=== PATIENT | male | born 1960 | race Caucasian/White ===

== ENCOUNTER 2017-08-25 21:54 | Inpatient (IN) | payer BC, OTHER ==
[~2017-08-25] VITALS: Ht 188 cm; Wt 122.2 kg
[2017-08-25] MEDS ORDERED: SODIUM CHLORIDE 0.9% 1,000 ML IV ONE (22:49)
[2017-08-25] MEDS ORDERED: MORPHINE SULFATE 4 MG/ML CPJ (NOT FOR IM USE) IV STA (22:49)
[2017-08-25] MEDS ORDERED: ONDANSETRON HCL 4MG/2ML VIAL IV ONE (23:00)
[2017-08-25 23:40] LABS: BASOPHILS % 0.3 % (0.0-2.0); HEMATOCRIT. 43.4 % (42.0-52.0); HEMOGLOBIN. 15.4 g/dL (14.0-18.0); LYMPHOCYTES % 23.6 % (20.0-50.0); MEAN CORPUSCULAR HEMOGLOBIN 31.1 pg (28.0-32.0); MEAN CORPUSCULAR VOLUME 87.6 fL (80.0-94.0); MEAN PLATELET VOLUME 6.3 fl (7.4-10.4); MONOCYTES % 9.6 % (2.0-8.0); NEUTROPHILS % 66.5 % (40.0-76.0); PLATELET 276 x1000/uL (130-400); RED BLOOD CELL COUNT 4.95 mill/uL (4.7-6.1)
[2017-08-25 23:48] LABS: CHLORIDE 87 mEq/L (98-107)
[2017-08-25 23:58] LABS: ETHANOL BLOOD 255 mg/dL
[2017-08-26 00:05] LABS: INR 1.3; PROTHROMBIN TIME 13.6 sec (9.4-11.6)
[2017-08-26] MEDS ORDERED: POTASSIUM CHLORIDE 20MEQ TABLET SR PO ONE (00:15)
[2017-08-26] MEDS ORDERED: KCL 20MEQ/100ML PREMIX 100 ML IV ONE (00:15)
[2017-08-26 04:00] VITALS: BP 127/80
[2017-08-26 05:00] VITALS: BP 127/80
[2017-08-26] MEDS ORDERED: DIPHENHYDRAMINE 50MG/ML VIAL IV PRN (06:15)
[2017-08-26] MEDS ORDERED: IPRATROPIUM/ALBUTEROL 0.5-3(2.5)MG/3ML NEB INH PRN (06:15)
[2017-08-26] MEDS ORDERED: DOCUSATE SODIUM 100MG CAPSULE PO PRN (06:15)
[2017-08-26] MEDS ORDERED: MORPHINE SULFATE 4 MG/ML CPJ (NOT FOR IM USE) IV PRN (06:15)
[2017-08-26] MEDS ORDERED: ACETAMINOPHEN 325MG TABLET PO PRN (06:15)
[2017-08-26] MEDS ORDERED: GUAIFENESIN 200MG/10ML SUGAR FREE UDC PO PRN (06:15)
[2017-08-26] MEDS ORDERED: MAGNESIUM/ALUMINUM HYDROXIDE/SIMETHICONE 30ML UDC PO PRN (06:15)
[2017-08-26] MEDS ORDERED: HYDROCODONE/ACETAMINOPHEN 5/325MG TABLET PO PRN (06:15)
[2017-08-26] MEDS ORDERED: NA PHOS,M-B/NA PHOS,DI-BA ENEMA 118ML PR PRN (06:15)
[2017-08-26] MEDS ORDERED: CLONIDINE 0.1MG TABLET PO PRN (06:15)
[2017-08-26] MEDS: LORAZEPAM 2MG/ML CPJ IV PRN ×4 (06:29→20:19)
[2017-08-26 07:41] VITALS: BP_SYST 132; BP_SYST 135; BP_DIAS 82
[2017-08-26] MEDS: ENOXAPARIN 40MG/0.4ML SYR SUBCUT SCH (08:07)
[2017-08-26] MEDS: ONDANSETRON HCL 4MG/2ML VIAL IV PRN ×2 (08:07→20:30)
[2017-08-26] MEDS: CHLORDIAZEPOXIDE 25MG CAPSULE PO PRN ×2 (08:07→23:11)
[2017-08-26] MEDS: ASPIRIN 81MG EC TABLET PO SCH (08:07)
[2017-08-26] MEDS: DEXT 5%/0.45% NACL KCL 10MEQ/L 1,000 ML IV SCH ×2 (10:56→16:36)
[2017-08-26 11:40] VITALS: BP 128/88
[2017-08-26 15:19] VITALS: BP_SYST 112; BP_SYST 128; BP_DIAS 83; BP_DIAS 94
[2017-08-26 16:08] LABS: BASOPHILS % 0.1 % (0.0-2.0); EOSINOPHILS % 0.1 % (0.0-5.0); HEMATOCRIT. 42.7 % (42.0-52.0); HEMOGLOBIN. 15.1 g/dL (14.0-18.0); LYMPHOCYTES % 12.7 % (20.0-50.0); MEAN CORPUSCULAR HEMOGLOBIN 31.2 pg (28.0-32.0); MEAN CORPUSCULAR VOLUME 88.1 fL (80.0-94.0); MEAN PLATELET VOLUME 6.5 fl (7.4-10.4); NEUTROPHILS % 79.1 % (40.0-76.0); PLATELET 244 x1000/uL (130-400); RED BLOOD CELL COUNT 4.85 mill/uL (4.7-6.1); RED CELL DISTRIBUTION WIDTH 15.7 % (11.6-14.6)
[2017-08-26 16:10] LABS: CHLORIDE 95 mEq/L (98-107)
[2017-08-26 20:00] VITALS: BP 114/86
[2017-08-27] VITALS: BP 116/87
[2017-08-27] MEDS ORDERED: POTASSIUM CHLORIDE 20MEQ TABLET SR PO SCH (02:15)
[2017-08-27 04:00] VITALS: BP 141/95
[2017-08-27] MEDS ORDERED: DEXT 5%/0.45% NACL KCL 20MEQ/L 1,000 ML IV SCH (04:00)
[2017-08-27 06:18] LABS: BASOPHILS % 0.3 % (0.0-2.0); EOSINOPHILS % 0.8 % (0.0-5.0); HEMATOCRIT. 42.3 % (42.0-52.0); HEMOGLOBIN. 14.6 g/dL (14.0-18.0); LYMPHOCYTES % 27.5 % (20.0-50.0); MEAN CORPUSCULAR HEMOGLOBIN 30.9 pg (28.0-32.0); MEAN CORPUSCULAR VOLUME 89.5 fL (80.0-94.0); MEAN PLATELET VOLUME 6.6 fl (7.4-10.4); MONOCYTES % 9.6 % (2.0-8.0); NEUTROPHILS % 61.8 % (40.0-76.0); PLATELET 221 x1000/uL (130-400); RED BLOOD CELL COUNT 4.73 mill/uL (4.7-6.1); RED CELL DISTRIBUTION WIDTH 15.6 % (11.6-14.6)
[2017-08-27 06:44] LABS: CHLORIDE 100 mEq/L (98-107)
[2017-08-27 06:58] LABS: LDL CHOLESTEROL 54 mg/dL (5-100)
[2017-08-27 07:01] LABS: HDL CHOLESTEROL 60 mg/dL (40-59)
[2017-08-27 07:23] VITALS: BP 136/92
[2017-08-27] MEDS: ASPIRIN 81MG EC TABLET PO SCH (09:36)
[2017-08-27] MEDS: ENOXAPARIN 40MG/0.4ML SYR SUBCUT SCH (09:37)
[2017-08-27 11:19] VITALS: BP 136/92
[2017-08-27 11:20] VITALS: BP 142/98
== END 2017-08-27 12:04 | disposition home or self-care (01) | DRG 682 ==
LOC: ER 22:04 → 5WST 08-26 00:30 → EDBEDREQ 08-26 00:31 → EDBEDREQTM 08-26 00:31 → EDBEDREQDT 08-26 00:31 → EDBEDREQ 08-26 01:45 → CANRESERV 08-26 03:28 → ENRESERV 08-26 03:28
PROVIDERS: ADMIT Internal Medicine; ATTEND Internal Medicine
DX: N17.0 Acute kidney failure with tubular necrosis (principal); G93.41 Metabolic encephalopathy; E87.1 Hypo-osmolality and hyponatremia; W18.39XA Other fall on same level, initial encounter; E86.0 Dehydration; E87.6 Hypokalemia; I10 Essential (primary) hypertension; R00.0 Tachycardia, unspecified; N28.9 Disorder of kidney and ureter, unspecified; F10.229 Alcohol dependence with intoxication, unspecified; Z82.41 Family history of sudden cardiac death; Z86.718 Personal history of other venous thrombosis and embolism; Z79.899 Other long term (current) drug therapy; Y93.89 Activity, other specified; Y92.89 Other specified places as the place of occurrence of the external cause; Y99.8 Other external cause status
CPT/HCPCS: 36415; 70450; 71045; 80048; 80053; 80061; 83735; 83880; 84439; 84443; 84484; 85025; 85610; 93005; 96361; 96374; 96375; 99285; G0482; J1650; J2060; J2270; J2405; J3480; J7030

== ENCOUNTER 2018-07-08 09:02 | Inpatient (IN) | payer BC ==
[2018-07-08] VITALS (12 sets, daily range): BP systolic 80–146; BP diastolic 47–99
[~2018-07-08] VITALS: Ht 188 cm; Wt 113.9 kg
[2018-07-08] MEDS ORDERED: FOLIC ACID 1 MG, THIAMINE HCL 100 MG, MVI, ADULT NO.1 10 ML in DEXTROSE 5% WATER 1,000 ML IV ONE ×4 (09:30)
[2018-07-08] MEDS ORDERED: LORAZEPAM 2MG/ML CPJ IV ONE (09:30)
[2018-07-08] MEDS ORDERED: ONDANSETRON HCL 4MG/2ML INJ IV ONE (09:30)
[2018-07-08 09:59] LABS: BASOPHILS % 0.3 % (0.0-2.0); HEMATOCRIT. 43.1 % (42.0-52.0); HEMOGLOBIN. 15.1 g/dL (14.0-18.0); LYMPHOCYTES % 8.4 % (20.0-50.0); MEAN CORPUSCULAR HEMOGLOBIN 31.3 pg (28.0-32.0); MEAN CORPUSCULAR VOLUME 89.4 fL (80.0-94.0); MEAN PLATELET VOLUME 6.2 fl (7.4-10.4); MONOCYTES % 9.4 % (2.0-8.0); NEUTROPHILS % 81.9 % (40.0-76.0); PLATELET 113 x1000/uL (130-400); RED BLOOD CELL COUNT 4.82 mill/uL (4.7-6.1); RED CELL DISTRIBUTION WIDTH 16.3 % (11.6-14.6)
[2018-07-08 10:05] LABS: CHLORIDE 92 mEq/L (98-107)
[2018-07-08 10:09] LABS: ETHANOL BLOOD 118 mg/dL
[2018-07-08 10:12] LABS: INR 1.3; PROTHROMBIN TIME 12.7 sec (9.6-11.0)
[2018-07-08] MEDS ORDERED: POTASSIUM CHLORIDE 20MEQ TABLET SR PO ONE (10:15)
[2018-07-08] MEDS ORDERED: CHLORDIAZEPOXIDE 25MG CAPSULE PO ONE (10:45)
[2018-07-08] MEDS ORDERED: IPRATROPIUM/ALBUTEROL 0.5-3(2.5)MG/3ML NEB INH PRN (11:15)
[2018-07-08] MEDS ORDERED: DOCUSATE SODIUM 100MG CAPSULE PO PRN (11:15)
[2018-07-08] MEDS ORDERED: ONDANSETRON HCL 4MG/2ML INJ IV PRN (11:15)
[2018-07-08] MEDS ORDERED: MAGNESIUM/ALUMINUM HYDROXIDE/SIMETHICONE 30ML UDC PO PRN (11:15)
[2018-07-08] MEDS ORDERED: GUAIFENESIN 200MG/10ML SUGAR FREE UDC PO PRN (11:15)
[2018-07-08] MEDS ORDERED: NITROGLYCERIN 0.4MG TABLET SL SL PRN (11:15)
[2018-07-08] MEDS ORDERED: CLONIDINE 0.1MG TABLET PO PRN (11:15)
[2018-07-08] MEDS ORDERED: MAGNESIUM 2 G PREMIX 50 ML IV ONE (11:45)
[2018-07-08] MEDS ORDERED: ENOXAPARIN 30MG/0.3ML SYR SUBCUT SCH (12:30)
[2018-07-08] MEDS ORDERED: MVI, ADULT NO.1 10 ML, FOLIC ACID 1 MG, THIAMINE HCL 100 MG in SODIUM CHLORIDE 0.9% 1,0... IV NR ×4 (13:00)
[2018-07-08] MEDS: CHLORDIAZEPOXIDE 25MG CAPSULE PO SCH ×2 (13:15→21:37)
[2018-07-08] MEDS: LORAZEPAM 2MG/ML CPJ IV PRN ×2 (13:15→17:44)
[2018-07-08] MEDS ORDERED: LORAZEPAM 2MG/ML CPJ IV NR (14:00)
[2018-07-08] MEDS ORDERED: CHLORDIAZEPOXIDE 25MG CAPSULE PO SCH (14:00)
[2018-07-08] MEDS ORDERED: SODIUM CHLORIDE 0.9% 1,000 ML IV ONE (15:00)
[2018-07-08 15:21] LABS: BG BASE EXCESS -3.4 mmol/L (-2.0-2.0); BG CARBOXYHEMOGLOBIN 0.6 % (0.5-1.5); BG DEOXYHEMOGLOBIN 3.8 % (0.0-5.0); BG FRACTION INSPIRED OXYGEN 100; BG HCO3 ACT 18.4 mmol/L (22.0-26.0); BG METHEMOGLOBIN 0.1 % (0.0-1.5); BG OXYGEN SATURATION 96.2 % (92.0-98.5); BG OXYHEMOGLOBIN 95.5 % (94.0-97.0); BG PCO2 26.2 mmHg (35.0-45.0); BG PH 7.465 (7.350-7.450); BG PO2 82.5 mmHg (75.0-100.0); BG SAMPLE SITE RIGHT BRACHIAL; BG TOTAL HEMOGLOBIN 15.7 g/dL (12.0-18.0); BG VENT MODE MASK - NRB
[2018-07-08] MEDS ORDERED: IPRATROPIUM BROMIDE (0.02%) 0.5MG/2.5ML NEB HHN PRN (15:45)
[2018-07-08] MEDS ORDERED: LORAZEPAM 2MG/ML CPJ IV PRN (15:45)
[2018-07-08] MEDS ORDERED: MAGNESIUM 4 G PREMIX 100 ML IV NR (16:00)
[2018-07-08] MEDS: DEXT 5%/0.9% NACL 1,000 ML IV SCH (16:49)
[2018-07-08] MEDS: TRAMADOL 50MG TABLET PO PRN (18:28)
[2018-07-08] MEDS: FAMOTIDINE 20MG TABLET PO SCH (21:37)
[2018-07-08] MEDS: ZOLPIDEM TARTRATE 5MG TABLET PO PRN (21:37)
[2018-07-08] MEDS: METOPROLOL TARTRATE 25MG TABLET PO SCH (21:38)
[2018-07-08 22:21] LABS: BG BASE EXCESS 0.4 mmol/L (-2.0-2.0); BG BILEVEL POS AIRWAY PRESSURE 15/5; BG CARBOXYHEMOGLOBIN 0.7 % (0.5-1.5); BG FRACTION INSPIRED OXYGEN 80; BG HCO3 ACT 23.5 mmol/L (22.0-26.0); BG METHEMOGLOBIN 0.3 % (0.0-1.5); BG PCO2 33.9 mmHg (35.0-45.0); BG PH 7.459 (7.350-7.450); BG PO2 106.7 mmHg (75.0-100.0); BG SAMPLE SITE RIGHT RADIAL; BG TOTAL HEMOGLOBIN 15.8 g/dL (12.0-18.0); BG VENT MODE MASK - BIPAP; BG VENT RATE 16 set
[2018-07-08] MEDS: IPRATROPIUM BROMIDE (0.02%) 0.5MG/2.5ML NEB HHN SCH (22:28)
[2018-07-09] VITALS (11 sets, daily range): BP systolic 111–149; BP diastolic 41–94
[2018-07-09 00:46] LABS: *AMPHETAMINES SCREEN URINE NEGATIVE (NEGATIVE); CANNABINOID URINE SCREEN NEGATIVE (NEGATIVE)
[2018-07-09 00:47] LABS: *BARBITURATES SCREEN URINE NEGATIVE (NEGATIVE); *BENZODIAZEPINES SCREEN URINE NEGATIVE (NEGATIVE); *COCAINE SCREEN URINE NEGATIVE (NEGATIVE); METHADONE URINE SCREEN NEGATIVE (NEGATIVE); OPIATES URINE SCREEN NEGATIVE (NEGATIVE); PHENCYCLIDINE URINE SCREEN NEGATIVE (NEGATIVE)
[2018-07-09] MEDS: IPRATROPIUM BROMIDE (0.02%) 0.5MG/2.5ML NEB HHN SCH ×4 (01:21→20:36)
[2018-07-09] MEDS: DEXT 5%/0.9% NACL 1,000 ML IV SCH (02:58)
[2018-07-09] MEDS: CHLORDIAZEPOXIDE 25MG CAPSULE PO SCH ×3 (05:44→21:14)
[2018-07-09] MEDS: FAMOTIDINE 20MG TABLET PO SCH ×2 (09:25→20:43)
[2018-07-09] MEDS: METOPROLOL TARTRATE 25MG TABLET PO SCH ×2 (09:25→20:43)
[2018-07-09] MEDS: TRAMADOL 50MG TABLET PO PRN (11:51)
[2018-07-09 12:05] LABS: CHLORIDE 99 mEq/L (98-107)
[2018-07-09 12:06] LABS: HEMATOCRIT 42.2 % (42.0-52.0); HEMOGLOBIN 14.5 g/dL (14.0-18.0); MEAN CORPUSCULAR HEMOGLOBIN 30.9 pg (28.0-32.0); MEAN CORPUSCULAR VOLUME 89.7 fL (80.0-94.0); PLATELET 91 x1000/uL (130-400); RED BLOOD CELL COUNT 4.71 mill/uL (4.7-6.1); RED CELL DISTRIBUTION WIDTH 16.6 % (11.6-14.6)
[2018-07-09] MEDS: ENOXAPARIN 120MG/0.8ML SYR SUBCUT SCH (13:58)
[2018-07-09] MEDS: LORAZEPAM 2MG/ML CPJ IV PRN (20:44)
[2018-07-10] VITALS (9 sets, daily range): BP systolic 104–155; BP diastolic 42–106
[2018-07-10] MEDS: IPRATROPIUM BROMIDE (0.02%) 0.5MG/2.5ML NEB HHN SCH ×5 (00:33→21:11)
[2018-07-10] MEDS: ENOXAPARIN 120MG/0.8ML SYR SUBCUT SCH ×2 (00:52→12:16)
[2018-07-10] MEDS: CHLORDIAZEPOXIDE 25MG CAPSULE PO SCH ×3 (05:48→21:38)
[2018-07-10] MEDS: METOPROLOL TARTRATE 25MG TABLET PO SCH ×2 (08:19→21:00)
[2018-07-10] MEDS: FAMOTIDINE 20MG TABLET PO SCH ×2 (08:36→21:00)
[2018-07-10] MEDS: LORAZEPAM 2MG/ML CPJ IV PRN (14:53)
[2018-07-10] MEDS ORDERED: LORAZEPAM 2MG/ML CPJ IV PRN (15:45)
[2018-07-10] MEDS: LORAZEPAM 2MG/ML CPJ IM PRN ×2 (17:32→23:28)
[2018-07-11] VITALS (11 sets, daily range): BP systolic 102–161; BP diastolic 29–120
[2018-07-11] MEDS: LORAZEPAM 2MG/ML CPJ IM PRN ×3 (00:48→21:38)
[2018-07-11] MEDS: IPRATROPIUM BROMIDE (0.02%) 0.5MG/2.5ML NEB HHN SCH ×3 (02:07→14:51)
[2018-07-11] MEDS: CHLORDIAZEPOXIDE 25MG CAPSULE PO SCH ×3 (06:00→21:38)
[2018-07-11] MEDS: METOPROLOL TARTRATE 25MG TABLET PO SCH ×2 (10:38→21:00)
[2018-07-11] MEDS: FAMOTIDINE 20MG TABLET PO SCH ×2 (10:38→21:38)
[2018-07-11] MEDS: ENOXAPARIN 120MG/0.8ML SYR SUBCUT SCH ×2 (12:48)
[2018-07-11] MEDS: TRAMADOL 50MG TABLET PO PRN (21:49)
[2018-07-12] VITALS (13 sets, daily range): BP systolic 124–152; BP diastolic 67–107
[2018-07-12] MEDS: ENOXAPARIN 120MG/0.8ML SYR SUBCUT SCH ×3 (01:01→23:07)
[2018-07-12] MEDS: IPRATROPIUM BROMIDE (0.02%) 0.5MG/2.5ML NEB HHN SCH ×4 (02:00→21:10)
[2018-07-12] MEDS: CHLORDIAZEPOXIDE 25MG CAPSULE PO SCH ×3 (06:30→21:48)
[2018-07-12] MEDS: TRAMADOL 50MG TABLET PO PRN (06:44)
[2018-07-12] MEDS: METOPROLOL TARTRATE 25MG TABLET PO SCH ×2 (09:26→21:40)
[2018-07-12] MEDS: FAMOTIDINE 20MG TABLET PO SCH ×2 (09:26→21:40)
[2018-07-12] MEDS: KETOROLAC 15MG/ML VIAL IV PRN ×3 (09:27→21:39)
[2018-07-12] MEDS ORDERED: LORAZEPAM 2MG/ML CPJ IV PRN (11:45)
[2018-07-12] MEDS: ZOLPIDEM TARTRATE 5MG TABLET PO PRN (21:40)
[2018-07-12] MEDS: ACETAMINOPHEN 325MG TABLET PO PRN (23:16)
[2018-07-13] VITALS (12 sets, daily range): BP systolic 103–168; BP diastolic 37–99
[2018-07-13] MEDS: IPRATROPIUM BROMIDE (0.02%) 0.5MG/2.5ML NEB HHN SCH ×4 (02:44→22:09)
[2018-07-13] MEDS: CHLORDIAZEPOXIDE 25MG CAPSULE PO SCH ×3 (07:00→22:00)
[2018-07-13] MEDS: FAMOTIDINE 20MG TABLET PO SCH ×2 (09:02→22:01)
[2018-07-13] MEDS: METOPROLOL TARTRATE 25MG TABLET PO SCH ×2 (09:03→22:02)
[2018-07-13] MEDS: ENOXAPARIN 120MG/0.8ML SYR SUBCUT SCH (12:30)
[2018-07-13] MEDS: TRAMADOL 50MG TABLET PO PRN ×2 (12:38→22:17)
[2018-07-13] MEDS: ACETAMINOPHEN 325MG TABLET PO PRN (12:49)
[2018-07-13] MEDS ORDERED: CHLORDIAZEPOXIDE 25MG CAPSULE PO SCH (14:00)
[2018-07-13] MEDS: KETOROLAC 15MG/ML VIAL IV PRN (16:23)
[2018-07-13 19:59] LABS: CHLORIDE 99 mEq/L (98-107)
[2018-07-13 20:04] LABS: PHOSPHORUS 3.3 mg/dL (2.5-4.9)
[2018-07-13] MEDS ORDERED: MAGNESIUM 2 G PREMIX 50 ML IV NR (22:00)
[2018-07-14] VITALS (12 sets, daily range): BP systolic 116–150; BP diastolic 55–93
[2018-07-14] MEDS: ENOXAPARIN 120MG/0.8ML SYR SUBCUT SCH ×3 (01:28→23:04)
[2018-07-14] MEDS: IPRATROPIUM BROMIDE (0.02%) 0.5MG/2.5ML NEB HHN SCH ×4 (02:41→21:52)
[2018-07-14] MEDS: CHLORDIAZEPOXIDE 25MG CAPSULE PO SCH (05:58)
[2018-07-14] MEDS: METOPROLOL TARTRATE 25MG TABLET PO SCH ×2 (09:02→20:02)
[2018-07-14] MEDS: FAMOTIDINE 20MG TABLET PO SCH ×2 (09:02→20:02)
[2018-07-14] MEDS: KETOROLAC 15MG/ML VIAL IV PRN ×3 (10:53→22:56)
[2018-07-14] MEDS: CHLORDIAZEPOXIDE 5 MG CAPSULE PO SCH ×2 (13:51→22:56)
[2018-07-14] MEDS: TRAMADOL 50MG TABLET PO PRN (20:03)
[2018-07-15] VITALS (10 sets, daily range): BP systolic 93–150; BP diastolic 53–87
[2018-07-15] MEDS: IPRATROPIUM BROMIDE (0.02%) 0.5MG/2.5ML NEB HHN SCH ×4 (02:52→20:20)
[2018-07-15] MEDS: CHLORDIAZEPOXIDE 5 MG CAPSULE PO SCH ×3 (06:26→21:24)
[2018-07-15 06:51] LABS: HEMATOCRIT. 35.4 % (42.0-52.0); HEMOGLOBIN. 12.6 g/dL (14.0-18.0); MEAN CORPUSCULAR HEMOGLOBIN 32.6 pg (28.0-32.0); MEAN CORPUSCULAR VOLUME 91.4 fL (80.0-94.0); MEAN PLATELET VOLUME 7.4 fl (7.4-10.4); PLATELET 267 x1000/uL (130-400); RED BLOOD CELL COUNT 3.87 mill/uL (4.7-6.1); RED CELL DISTRIBUTION WIDTH 16.7 % (11.6-14.6)
[2018-07-15 07:04] LABS: CHLORIDE 97 mEq/L (98-107)
[2018-07-15] MEDS: METOPROLOL TARTRATE 25MG TABLET PO SCH ×2 (08:40→20:04)
[2018-07-15] MEDS: FAMOTIDINE 20MG TABLET PO SCH ×2 (08:40→20:04)
[2018-07-15 10:00] LABS: PLATELET ESTIMATE NORMAL
[2018-07-15] MEDS ORDERED: METHYLPREDNISOLONE SOD SUCC 125 MG/2 ML VIAL IV NR (10:15)
[2018-07-15] MEDS ORDERED: POTASSIUM CHLORIDE 20MEQ TABLET SR PO NR (10:30)
[2018-07-15] MEDS: COLCHICINE 0.6MG TABLET PO SCH ×11 (10:34→23:30)
[2018-07-15] MEDS: KETOROLAC 15MG/ML VIAL IV PRN (11:37)
[2018-07-15] MEDS: SODIUM CHLORIDE 0.9% 1,000 ML IV SCH (11:37)
[2018-07-15] MEDS: ENOXAPARIN 120MG/0.8ML SYR SUBCUT SCH ×2 (11:38→23:28)
[2018-07-15] MEDS ORDERED: MAGNESIUM 2 G PREMIX 50 ML IV SCH (12:00)
[2018-07-16] VITALS (11 sets, daily range): BP systolic 118–150; BP diastolic 52–96
[2018-07-16] MEDS: SODIUM CHLORIDE 0.9% 1,000 ML IV SCH (00:24)
[2018-07-16] MEDS: COLCHICINE 0.6MG TABLET PO SCH ×6 (00:30→17:50)
[2018-07-16] MEDS: IPRATROPIUM BROMIDE (0.02%) 0.5MG/2.5ML NEB HHN SCH ×4 (02:11→20:55)
[2018-07-16] MEDS: CHLORDIAZEPOXIDE 5 MG CAPSULE PO SCH (06:25)
[2018-07-16 07:19] LABS: CHLORIDE 105 mEq/L (98-107)
[2018-07-16] MEDS ORDERED: PREDNISONE 20MG TABLET PO NR (09:35)
[2018-07-16] MEDS: METOPROLOL TARTRATE 25MG TABLET PO SCH ×2 (09:40→20:46)
[2018-07-16] MEDS: FAMOTIDINE 20MG TABLET PO SCH ×2 (09:41→20:46)
[2018-07-16] MEDS: ENOXAPARIN 120MG/0.8ML SYR SUBCUT SCH ×2 (12:38→23:11)
[2018-07-17] VITALS (10 sets, daily range): BP systolic 112–145; BP diastolic 59–96
[2018-07-17] MEDS: IPRATROPIUM BROMIDE (0.02%) 0.5MG/2.5ML NEB HHN SCH ×2 (01:46→08:27)
[2018-07-17] MEDS: MULTIVITAMINS,THER W-MINERALS TABLET PO SCH (08:43)
[2018-07-17] MEDS: FAMOTIDINE 20MG TABLET PO SCH (08:43)
[2018-07-17] MEDS: THIAMINE HCL 100MG TABLET PO SCH (08:43)
[2018-07-17] MEDS: COLCHICINE 0.6MG TABLET PO SCH ×2 (08:43→16:58)
[2018-07-17] MEDS: METOPROLOL TARTRATE 25MG TABLET PO SCH (08:44)
[2018-07-17] MEDS: FOLIC ACID 1MG TABLET PO SCH (08:44)
[2018-07-17] MEDS: ENOXAPARIN 120MG/0.8ML SYR SUBCUT SCH (13:22)
[2018-07-17] MEDS: LIDOCAINE 5% PATCH TOP SCH (13:23)
[2018-07-17] MEDS: TRAMADOL 50MG TABLET PO PRN (20:25)
[2018-07-18] VITALS (12 sets, daily range): BP systolic 97–148; BP diastolic 62–92
[2018-07-18] MEDS: FAMOTIDINE 20MG TABLET PO SCH ×2 (00:14→09:48)
[2018-07-18] MEDS: ENOXAPARIN 120MG/0.8ML SYR SUBCUT SCH ×2 (00:15→12:40)
[2018-07-18] MEDS: METOPROLOL TARTRATE 25MG TABLET PO SCH ×2 (00:16→09:52)
[2018-07-18] MEDS: KETOROLAC 15MG/ML VIAL IV PRN ×2 (00:17→09:49)
[2018-07-18] MEDS: COLCHICINE 0.6MG TABLET PO SCH ×2 (09:00→17:00)
[2018-07-18] MEDS: THIAMINE HCL 100MG TABLET PO SCH (09:48)
[2018-07-18] MEDS: MULTIVITAMINS,THER W-MINERALS TABLET PO SCH (09:48)
[2018-07-18] MEDS: FOLIC ACID 1MG TABLET PO SCH (09:48)
[2018-07-18] MEDS: LIDOCAINE 5% PATCH TOP SCH (09:50)
[2018-07-18] MEDS ORDERED: KETOROLAC 15MG/ML VIAL IV PRN (15:45)
== END 2018-07-18 18:15 | DRG 896 ==
LOC: ER 09:02 → 5EST 10:08 → EDBEDREQ 10:21 → ENRESERV 10:57 → CANRESERV 10:57 → ENRESERV 11:00 → SUPCPDRO 11:07 → 5EST 22:14
PROVIDERS: ADMIT Internal Medicine; ATTEND Internal Medicine
PROC: 5A09357 Assistance with Respiratory Ventilation, Less than 24 Consecutive Hours, Continuous Positive Airway Pressure (ICD-10-PCS; 2018-07-08)
PROC: 5A09357 Assistance with Respiratory Ventilation, Less than 24 Consecutive Hours, Continuous Positive Airway Pressure (ICD-10-PCS; 2018-07-09)
PROC: 5A09357 Assistance with Respiratory Ventilation, Less than 24 Consecutive Hours, Continuous Positive Airway Pressure (ICD-10-PCS; principal; 2018-07-14)
DX: F10.239 Alcohol dependence with withdrawal, unspecified (principal); G92 Toxic encephalopathy; J96.00 Acute respiratory failure, unspecified whether with hypoxia or hypercapnia; E87.1 Hypo-osmolality and hyponatremia; E87.4 Mixed disorder of acid-base balance; I82.411 Acute embolism and thrombosis of right femoral vein; E44.1 Mild protein-calorie malnutrition; I82.431 Acute embolism and thrombosis of right popliteal vein; G40.89 Other seizures; F10.231 Alcohol dependence with withdrawal delirium; E87.6 Hypokalemia; E83.42 Hypomagnesemia; D64.9 Anemia, unspecified; D69.6 Thrombocytopenia, unspecified; E66.9 Obesity, unspecified; G62.9 Polyneuropathy, unspecified; I10 Essential (primary) hypertension; M10.9 Gout, unspecified; Z68.32 Body mass index [BMI] 32.0-32.9, adult
CPT/HCPCS: 36415; 36600; 71045; 80048; 80305; 80320; 82375; 82805; 83036; 83735; 83880; 84100; 84484; 85027; 93005; 93970; 94640; 94660; 96374; 97116; 97162; 97166; 97530; 99285; A6261; J1650; J1885; J2060; J2405; J2930; J3411; J3475; J3490; J7030; J7040; J7042; J7050; J7070; J7512; G0480

== ENCOUNTER 2018-07-18 18:53 | Inpatient (IN) | payer BC ==
[2018-07-17 20:30] VITALS: BP 97/75
[~2018-07-18] VITALS: Ht 188 cm; Wt 112.9 kg
[2018-07-18 20:00] VITALS: BP 97/75
[2018-07-18] MEDS ORDERED: GUAIFENESIN 200MG/10ML SUGAR FREE UDC PO PRN (20:15)
[2018-07-18] MEDS ORDERED: IPRATROPIUM BROMIDE (0.02%) 0.5MG/2.5ML NEB HHN PRN (20:15)
[2018-07-18] MEDS ORDERED: MAGNESIUM/ALUMINUM HYDROXIDE/SIMETHICONE 30ML UDC PO PRN (20:15)
[2018-07-18] MEDS ORDERED: NITROGLYCERIN 0.4MG TABLET SL SL PRN (20:15)
[2018-07-18] MEDS ORDERED: DOCUSATE SODIUM 100MG CAPSULE PO PRN (20:15)
[2018-07-18] MEDS ORDERED: ACETAMINOPHEN 325MG TABLET PO PRN (20:15)
[2018-07-18 20:30] VITALS: BP 97/75
[2018-07-18] MEDS: METOPROLOL TARTRATE 25MG TABLET PO SCH (21:00)
[2018-07-18] MEDS: FAMOTIDINE 20MG TABLET PO SCH (21:40)
[2018-07-18] MEDS: RIVAROXABAN 15 MG TABLET PO SCH (21:40)
[2018-07-18] MEDS: TRAMADOL 50MG TABLET PO PRN (22:25)
[2018-07-19 05:18] LABS: HEMATOCRIT. 38.5 % (42.0-52.0); HEMOGLOBIN. 13.4 g/dL (14.0-18.0); MEAN CORPUSCULAR VOLUME 91.9 fL (80.0-94.0); MEAN PLATELET VOLUME 6.5 fl (7.4-10.4); PLATELET 650 x1000/uL (130-400); RED BLOOD CELL COUNT 4.18 mill/uL (4.7-6.1)
[2018-07-19 08:00] VITALS: BP 149/98
[2018-07-19 08:01] LABS: CHLORIDE 106 mEq/L (98-107)
[2018-07-19] MEDS: COLCHICINE 0.6MG TABLET PO SCH ×2 (09:00→17:00)
[2018-07-19] MEDS: THIAMINE HCL 100MG TABLET PO SCH (09:00)
[2018-07-19] MEDS: MULTIVITAMINS,THER W-MINERALS TABLET PO SCH (09:00)
[2018-07-19] MEDS: FAMOTIDINE 20MG TABLET PO SCH ×2 (09:00→21:05)
[2018-07-19] MEDS: RIVAROXABAN 15 MG TABLET PO SCH ×2 (09:01→18:32)
[2018-07-19] MEDS: FOLIC ACID 1MG TABLET PO SCH (09:01)
[2018-07-19] MEDS: METOPROLOL TARTRATE 25MG TABLET PO SCH ×2 (09:01→21:05)
[2018-07-19] MEDS: LIDOCAINE 5% PATCH TOP SCH (09:02)
[2018-07-19 09:51] LABS: PLATELET ESTIMATE MARKEDLY INCREASED
[2018-07-19] MEDS: TRAMADOL 50MG TABLET PO PRN (10:52)
[2018-07-19] MEDS: LACTULOSE 20G/30ML UDC PO SCH ×2 (17:00→21:00)
[2018-07-19] MEDS: DOCUSATE SODIUM 100MG CAPSULE PO SCH (17:00)
[2018-07-19] MEDS: FERROUS SULFATE 300MG/5ML UDC PO SCH (18:32)
[2018-07-19 20:00] VITALS: BP 137/92
[2018-07-19] MEDS: POLYETHYLENE GLYCOL 3350 (17GM) 1 DOSE PACK PO SCH (21:00)
[2018-07-20 06:21] LABS: BASOPHILS % 0.6 % (0.0-2.0); EOSINOPHILS % 1.6 % (0.0-5.0); HEMATOCRIT. 39.1 % (42.0-52.0); HEMOGLOBIN. 13.6 g/dL (14.0-18.0); LYMPHOCYTES % 21.4 % (20.0-50.0); MEAN CORPUSCULAR HEMOGLOBIN 31.9 pg (28.0-32.0); MEAN CORPUSCULAR VOLUME 91.4 fL (80.0-94.0); MEAN PLATELET VOLUME 6.4 fl (7.4-10.4); MONOCYTES % 13.3 % (2.0-8.0); NEUTROPHILS % 63.1 % (40.0-76.0); PLATELET 698 x1000/uL (130-400); RED BLOOD CELL COUNT 4.28 mill/uL (4.7-6.1); RED CELL DISTRIBUTION WIDTH 17.2 % (11.6-14.6)
[2018-07-20 06:52] LABS: CHLORIDE 106 mEq/L (98-107)
[2018-07-20 07:00] LABS: FOLIC ACID (FOLATE) SERUM 14.8 ng/mL (>5.38)
[2018-07-20 07:01] LABS: PHOSPHORUS 4.2 mg/dL (2.5-4.9); TOTAL IRON BINDING CAPACITY 201 ug/dL (250-450)
[2018-07-20 07:04] LABS: PROSTRATE SPECIFIC AG TOTAL 1.35 ng/mL (0.0-4.0)
[2018-07-20 08:00] VITALS: BP 136/86
[2018-07-20] MEDS: COLCHICINE 0.6MG TABLET PO SCH ×2 (09:00→17:00)
[2018-07-20] MEDS: RIVAROXABAN 15 MG TABLET PO SCH ×2 (09:47→17:33)
[2018-07-20] MEDS: FOLIC ACID 1MG TABLET PO SCH (09:47)
[2018-07-20] MEDS: FAMOTIDINE 20MG TABLET PO SCH ×2 (09:48→21:11)
[2018-07-20] MEDS: MULTIVITAMINS,THER W-MINERALS TABLET PO SCH (09:48)
[2018-07-20] MEDS: DOCUSATE SODIUM 100MG CAPSULE PO SCH ×2 (09:48→17:00)
[2018-07-20] MEDS: METOPROLOL TARTRATE 25MG TABLET PO SCH ×2 (09:48→21:00)
[2018-07-20] MEDS: FERROUS SULFATE 300MG/5ML UDC PO SCH ×3 (09:49→17:33)
[2018-07-20] MEDS: LIDOCAINE 5% PATCH TOP SCH (09:50)
[2018-07-20] MEDS: MAGNESIUM OXIDE 400MG TABLET PO SCH (10:34)
[2018-07-20] MEDS: THIAMINE HCL 100MG TABLET PO SCH (10:34)
[2018-07-20] MEDS: LACTULOSE 20G/30ML UDC PO SCH (11:02)
[2018-07-20 11:54] LABS: T4 FREE 1.28 ng/dL (0.76-1.46)
[2018-07-20] MEDS ORDERED: LACTULOSE 20G/30ML UDC PO SCH (13:26)
[2018-07-20] MEDS: TRAMADOL 50MG TABLET PO PRN (17:33)
[2018-07-20 20:00] VITALS: BP 114/81
[2018-07-20] MEDS: POLYETHYLENE GLYCOL 3350 (17GM) 1 DOSE PACK PO SCH (21:00)
[2018-07-21] MEDS: TRAMADOL 50MG TABLET PO PRN ×4 (00:12→23:08)
[2018-07-21] MEDS: MULTIVITAMINS,THER W-MINERALS TABLET PO SCH (08:01)
[2018-07-21] MEDS: DOCUSATE SODIUM 100MG CAPSULE PO SCH ×3 (08:01→17:00)
[2018-07-21] MEDS: MAGNESIUM OXIDE 400MG TABLET PO SCH (08:01)
[2018-07-21] MEDS: FAMOTIDINE 20MG TABLET PO SCH ×2 (08:01→21:22)
[2018-07-21] MEDS: FOLIC ACID 1MG TABLET PO SCH (08:01)
[2018-07-21] MEDS: THIAMINE HCL 100MG TABLET PO SCH (08:01)
[2018-07-21] MEDS: COLCHICINE 0.6MG TABLET PO SCH ×2 (08:01→16:47)
[2018-07-21] MEDS: FERROUS SULFATE 300MG/5ML UDC PO SCH ×3 (08:02→16:47)
[2018-07-21] MEDS: METOPROLOL TARTRATE 25MG TABLET PO SCH ×2 (08:02→21:22)
[2018-07-21] MEDS: LIDOCAINE 5% PATCH TOP SCH (08:03)
[2018-07-21 08:04] VITALS: BP 116/73
[2018-07-21] MEDS: RIVAROXABAN 15 MG TABLET PO SCH ×2 (08:05→16:47)
[2018-07-21] MEDS: ALLOPURINOL 100 MG TABLET PO SCH (11:05)
[2018-07-21 16:30] VITALS: BP 104/64
[2018-07-21 20:00] VITALS: BP 118/77
[2018-07-21] MEDS: POLYETHYLENE GLYCOL 3350 (17GM) 1 DOSE PACK PO SCH (21:00)
[2018-07-22] MEDS: TRAMADOL 50MG TABLET PO PRN ×2 (06:28→15:41)
[2018-07-22 07:00] VITALS: BP 105/70
[2018-07-22] MEDS: COLCHICINE 0.6MG TABLET PO SCH ×2 (08:00→16:06)
[2018-07-22] MEDS: MAGNESIUM OXIDE 400MG TABLET PO SCH (08:00)
[2018-07-22] MEDS: FOLIC ACID 1MG TABLET PO SCH (08:00)
[2018-07-22] MEDS: FERROUS SULFATE 300MG/5ML UDC PO SCH ×3 (08:00→16:07)
[2018-07-22] MEDS: RIVAROXABAN 15 MG TABLET PO SCH ×2 (08:00→16:07)
[2018-07-22] MEDS: THIAMINE HCL 100MG TABLET PO SCH (08:00)
[2018-07-22] MEDS: FAMOTIDINE 20MG TABLET PO SCH ×2 (08:00→21:31)
[2018-07-22] MEDS: MULTIVITAMINS,THER W-MINERALS TABLET PO SCH (08:00)
[2018-07-22] MEDS: ALLOPURINOL 100 MG TABLET PO SCH (08:00)
[2018-07-22] MEDS: DOCUSATE SODIUM 100MG CAPSULE PO SCH ×2 (08:01→16:07)
[2018-07-22] MEDS: METOPROLOL TARTRATE 25MG TABLET PO SCH ×2 (08:01→21:31)
[2018-07-22] MEDS: LIDOCAINE 5% PATCH TOP SCH (08:02)
[2018-07-22 15:30] VITALS: BP 101/56
[2018-07-22] MEDS: CALCITONIN,SALMON, 3.7 ML NASAL SPRAY ONENSTRL SCH (15:41)
[2018-07-22] MEDS ORDERED: COLC0.6C3 MT (17:06)
[2018-07-22] MEDS ORDERED: AMLO1TAB12 MT (17:06)
[2018-07-22] MEDS ORDERED: ALLO100T MT (17:06)
[2018-07-22] MEDS ORDERED: COLC0.6C3 PO (17:07)
[2018-07-22 20:00] VITALS: BP 119/82
[2018-07-22] MEDS: POLYETHYLENE GLYCOL 3350 (17GM) 1 DOSE PACK PO SCH (21:00)
[2018-07-23] MEDS: TRAMADOL 50MG TABLET PO PRN ×3 (00:55→23:04)
[2018-07-23 08:49] VITALS: BP 106/72
[2018-07-23] MEDS: THIAMINE HCL 100MG TABLET PO SCH (09:29)
[2018-07-23] MEDS: DOCUSATE SODIUM 100MG CAPSULE PO SCH ×2 (09:29→17:00)
[2018-07-23] MEDS: FOLIC ACID 1MG TABLET PO SCH (09:29)
[2018-07-23] MEDS: FERROUS SULFATE 300MG/5ML UDC PO SCH ×3 (09:30→17:27)
[2018-07-23] MEDS: RIVAROXABAN 15 MG TABLET PO SCH ×2 (09:30→17:28)
[2018-07-23] MEDS: METOPROLOL TARTRATE 25MG TABLET PO SCH ×2 (09:30→21:18)
[2018-07-23] MEDS: COLCHICINE 0.6MG TABLET PO SCH ×2 (09:30→17:28)
[2018-07-23] MEDS: MULTIVITAMINS,THER W-MINERALS TABLET PO SCH (09:30)
[2018-07-23] MEDS: MAGNESIUM OXIDE 400MG TABLET PO SCH (09:30)
[2018-07-23] MEDS: ALLOPURINOL 100 MG TABLET PO SCH (09:30)
[2018-07-23] MEDS: FAMOTIDINE 20MG TABLET PO SCH ×2 (09:30→21:18)
[2018-07-23] MEDS: CALCITONIN,SALMON, 3.7 ML NASAL SPRAY ONENSTRL SCH (09:31)
[2018-07-23] MEDS: LIDOCAINE 5% PATCH TOP SCH (09:31)
[2018-07-23 17:06] LABS: 25-HYDROXY VITAMIN D3 24 ng/mL (.)
[2018-07-23 20:00] VITALS: BP 104/74
[2018-07-23] MEDS: POLYETHYLENE GLYCOL 3350 (17GM) 1 DOSE PACK PO SCH (21:00)
[2018-07-24 06:41] LABS: HEMATOCRIT. 40.7 % (42.0-52.0); MEAN CORPUSCULAR HEMOGLOBIN 31.7 pg (28.0-32.0); MEAN PLATELET VOLUME 6.5 fl (7.4-10.4); PLATELET 777 x1000/uL (130-400); RED BLOOD CELL COUNT 4.42 mill/uL (4.7-6.1); RED CELL DISTRIBUTION WIDTH 17.3 % (11.6-14.6)
[2018-07-24 07:08] LABS: CHLORIDE 103 mEq/L (98-107)
[2018-07-24 07:28] LABS: PHOSPHORUS 4.1 mg/dL (2.5-4.9)
[2018-07-24 08:00] VITALS: BP 125/74
[2018-07-24] MEDS: RIVAROXABAN 15 MG TABLET PO SCH ×2 (08:12→16:17)
[2018-07-24] MEDS: FAMOTIDINE 20MG TABLET PO SCH ×2 (08:12→20:59)
[2018-07-24] MEDS: FERROUS SULFATE 300MG/5ML UDC PO SCH ×3 (08:12→16:16)
[2018-07-24] MEDS: METOPROLOL TARTRATE 25MG TABLET PO SCH ×2 (08:12→20:59)
[2018-07-24] MEDS: CALCITONIN,SALMON, 3.7 ML NASAL SPRAY ONENSTRL SCH (08:12)
[2018-07-24] MEDS: MULTIVITAMINS,THER W-MINERALS TABLET PO SCH (08:12)
[2018-07-24] MEDS: ALLOPURINOL 100 MG TABLET PO SCH (08:12)
[2018-07-24] MEDS: COLCHICINE 0.6MG TABLET PO SCH ×2 (08:12→16:16)
[2018-07-24] MEDS: FOLIC ACID 1MG TABLET PO SCH (08:13)
[2018-07-24] MEDS: DOCUSATE SODIUM 100MG CAPSULE PO SCH ×2 (08:13→16:14)
[2018-07-24] MEDS: MAGNESIUM OXIDE 400MG TABLET PO SCH (08:13)
[2018-07-24] MEDS: THIAMINE HCL 100MG TABLET PO SCH (08:13)
[2018-07-24] MEDS: LIDOCAINE 5% PATCH TOP SCH ×2 (08:14→08:16)
[2018-07-24 09:45] LABS: PLATELET ESTIMATE INCREASED
[2018-07-24] MEDS: ERGOCALCIFEROL 50000UNITS CAPSULE PO SCH (12:45)
[2018-07-24] MEDS: TRAMADOL 50MG TABLET PO PRN ×2 (13:51→22:37)
[2018-07-24 20:00] VITALS: BP_SYST 117; BP_SYST 132; BP_DIAS 60; BP_DIAS 80
[2018-07-24] MEDS: POLYETHYLENE GLYCOL 3350 (17GM) 1 DOSE PACK PO SCH (20:59)
[2018-07-25] MEDS: TRAMADOL 50MG TABLET PO PRN ×2 (06:32→16:39)
[2018-07-25 08:00] VITALS: BP 136/90
[2018-07-25] MEDS: CALCITONIN,SALMON, 3.7 ML NASAL SPRAY ONENSTRL SCH (08:21)
[2018-07-25] MEDS: FERROUS SULFATE 300MG/5ML UDC PO SCH ×3 (08:21→16:05)
[2018-07-25] MEDS: FAMOTIDINE 20MG TABLET PO SCH ×2 (08:22→21:22)
[2018-07-25] MEDS: FOLIC ACID 1MG TABLET PO SCH (08:22)
[2018-07-25] MEDS: MAGNESIUM OXIDE 400MG TABLET PO SCH (08:22)
[2018-07-25] MEDS: ALLOPURINOL 100 MG TABLET PO SCH (08:22)
[2018-07-25] MEDS: METOPROLOL TARTRATE 25MG TABLET PO SCH ×2 (08:22→21:23)
[2018-07-25] MEDS: COLCHICINE 0.6MG TABLET PO SCH ×2 (08:22→16:05)
[2018-07-25] MEDS: MULTIVITAMINS,THER W-MINERALS TABLET PO SCH (08:22)
[2018-07-25] MEDS: THIAMINE HCL 100MG TABLET PO SCH (08:22)
[2018-07-25] MEDS: RIVAROXABAN 15 MG TABLET PO SCH ×2 (08:22→16:05)
[2018-07-25] MEDS: DOCUSATE SODIUM 100MG CAPSULE PO SCH ×2 (08:23→16:07)
[2018-07-25] MEDS: LIDOCAINE 5% PATCH TOP SCH (08:25)
[2018-07-25] MEDS ORDERED: LIDOCAINE HCL 1% 20ML VIAL (Pyxis) INJ INFIL NR (10:00)
[2018-07-25] MEDS ORDERED: TRIAMCINOLONE ACETONIDE 40MG/ML 1ML VIAL IM NR (10:00)
[2018-07-25] MEDS ORDERED: ETHYL CHLORIDE CAN TOP NR (10:00)
[2018-07-25] MEDS ORDERED: BUPIVACAINE HCL/PF 0.25% (2.5MG/ML) 10ML INFIL NR (10:00)
[2018-07-25] MEDS ORDERED: BISACODYL 5MG TABLET PO PRN ×2 (10:45→11:00)
[2018-07-25 20:00] VITALS: BP 128/82
[2018-07-25] MEDS: POLYETHYLENE GLYCOL 3350 (17GM) 1 DOSE PACK PO SCH (21:00)
[2018-07-26] MEDS: TRAMADOL 50MG TABLET PO PRN ×2 (00:59→22:27)
[2018-07-26 08:17] VITALS: BP 111/76
[2018-07-26] MEDS: FERROUS SULFATE 300MG/5ML UDC PO SCH ×3 (08:55→16:09)
[2018-07-26] MEDS: FOLIC ACID 1MG TABLET PO SCH (08:56)
[2018-07-26] MEDS: COLCHICINE 0.6MG TABLET PO SCH ×2 (08:56→16:10)
[2018-07-26] MEDS: METOPROLOL TARTRATE 25MG TABLET PO SCH ×2 (08:56→22:27)
[2018-07-26] MEDS: ALLOPURINOL 100 MG TABLET PO SCH (08:56)
[2018-07-26] MEDS: MULTIVITAMINS,THER W-MINERALS TABLET PO SCH (08:56)
[2018-07-26] MEDS: MAGNESIUM OXIDE 400MG TABLET PO SCH (08:56)
[2018-07-26] MEDS: FAMOTIDINE 20MG TABLET PO SCH ×2 (08:56→22:27)
[2018-07-26] MEDS: THIAMINE HCL 100MG TABLET PO SCH (08:56)
[2018-07-26] MEDS: RIVAROXABAN 15 MG TABLET PO SCH ×2 (08:57→16:09)
[2018-07-26] MEDS: CALCITONIN,SALMON, 3.7 ML NASAL SPRAY ONENSTRL SCH (09:00)
[2018-07-26] MEDS: LIDOCAINE 5% PATCH TOP SCH (09:00)
[2018-07-26] MEDS: DOCUSATE SODIUM 100MG CAPSULE PO SCH ×2 (09:00→16:10)
[2018-07-26 20:00] VITALS: BP 127/85
[2018-07-26] MEDS: POLYETHYLENE GLYCOL 3350 (17GM) 1 DOSE PACK PO SCH (22:27)
[2018-07-27] MEDS: TRAMADOL 50MG TABLET PO PRN ×2 (06:34→22:20)
[2018-07-27 06:47] LABS: BASOPHILS % 1.1 % (0.0-2.0); EOSINOPHILS % 1.7 % (0.0-5.0); HEMATOCRIT. 42.4 % (42.0-52.0); HEMOGLOBIN. 14.6 g/dL (14.0-18.0); LYMPHOCYTES % 27.7 % (20.0-50.0); MEAN CORPUSCULAR HEMOGLOBIN 31.4 pg (28.0-32.0); MEAN CORPUSCULAR VOLUME 91.2 fL (80.0-94.0); MEAN PLATELET VOLUME 6.5 fl (7.4-10.4); MONOCYTES % 14.8 % (2.0-8.0); NEUTROPHILS % 54.7 % (40.0-76.0); PLATELET 738 x1000/uL (130-400); RED BLOOD CELL COUNT 4.65 mill/uL (4.7-6.1); RED CELL DISTRIBUTION WIDTH 16.7 % (11.6-14.6)
[2018-07-27 06:59] LABS: CHLORIDE 104 mEq/L (98-107)
[2018-07-27 08:49] VITALS: BP 115/72
[2018-07-27] MEDS: COLCHICINE 0.6MG TABLET PO SCH ×2 (08:56→17:45)
[2018-07-27] MEDS: ALLOPURINOL 100 MG TABLET PO SCH (08:56)
[2018-07-27] MEDS: MAGNESIUM OXIDE 400MG TABLET PO SCH (08:56)
[2018-07-27] MEDS: MULTIVITAMINS,THER W-MINERALS TABLET PO SCH (08:56)
[2018-07-27] MEDS: FAMOTIDINE 20MG TABLET PO SCH ×2 (08:56→22:20)
[2018-07-27] MEDS: THIAMINE HCL 100MG TABLET PO SCH (08:56)
[2018-07-27] MEDS: METOPROLOL TARTRATE 25MG TABLET PO SCH ×2 (08:57→22:21)
[2018-07-27] MEDS: RIVAROXABAN 15 MG TABLET PO SCH ×2 (08:57→17:45)
[2018-07-27] MEDS: DOCUSATE SODIUM 100MG CAPSULE PO SCH ×2 (08:57→17:45)
[2018-07-27] MEDS: FERROUS SULFATE 300MG/5ML UDC PO SCH ×3 (08:57→17:45)
[2018-07-27] MEDS: FOLIC ACID 1MG TABLET PO SCH (08:57)
[2018-07-27] MEDS: CALCITONIN,SALMON, 3.7 ML NASAL SPRAY ONENSTRL SCH (08:57)
[2018-07-27] MEDS: LIDOCAINE 5% PATCH TOP SCH (08:59)
[2018-07-27 20:00] VITALS: BP 113/73
[2018-07-27] MEDS: POLYETHYLENE GLYCOL 3350 (17GM) 1 DOSE PACK PO SCH (22:21)
[2018-07-28] MEDS: TRAMADOL 50MG TABLET PO PRN ×2 (06:27→23:58)
[2018-07-28 08:00] VITALS: BP 119/70
[2018-07-28] MEDS: DOCUSATE SODIUM 100MG CAPSULE PO SCH ×2 (09:00→16:47)
[2018-07-28] MEDS: LIDOCAINE 5% PATCH TOP SCH (09:00)
[2018-07-28] MEDS: MULTIVITAMINS,THER W-MINERALS TABLET PO SCH (09:06)
[2018-07-28] MEDS: CALCITONIN,SALMON, 3.7 ML NASAL SPRAY ONENSTRL SCH (09:06)
[2018-07-28] MEDS: COLCHICINE 0.6MG TABLET PO SCH ×2 (09:07→16:46)
[2018-07-28] MEDS: FOLIC ACID 1MG TABLET PO SCH (09:07)
[2018-07-28] MEDS: ALLOPURINOL 100 MG TABLET PO SCH (09:07)
[2018-07-28] MEDS: FERROUS SULFATE 300MG/5ML UDC PO SCH ×3 (09:07→16:46)
[2018-07-28] MEDS: FAMOTIDINE 20MG TABLET PO SCH ×2 (09:07→20:57)
[2018-07-28] MEDS: MAGNESIUM OXIDE 400MG TABLET PO SCH (09:07)
[2018-07-28] MEDS: THIAMINE HCL 100MG TABLET PO SCH (09:07)
[2018-07-28] MEDS: METOPROLOL TARTRATE 25MG TABLET PO SCH ×2 (09:07→20:57)
[2018-07-28] MEDS: RIVAROXABAN 15 MG TABLET PO SCH ×2 (09:07→16:46)
[2018-07-28 20:00] VITALS: BP 120/77
[2018-07-28] MEDS: POLYETHYLENE GLYCOL 3350 (17GM) 1 DOSE PACK PO SCH (20:57)
[2018-07-29] MEDS: TRAMADOL 50MG TABLET PO PRN ×2 (06:52→23:01)
[2018-07-29 07:30] VITALS: BP 134/103
[2018-07-29] MEDS: DOCUSATE SODIUM 100MG CAPSULE PO SCH ×2 (09:00→16:33)
[2018-07-29] MEDS: LIDOCAINE 5% PATCH TOP SCH (09:00)
[2018-07-29] MEDS: FERROUS SULFATE 300MG/5ML UDC PO SCH ×3 (09:01→16:42)
[2018-07-29] MEDS: THIAMINE HCL 100MG TABLET PO SCH (09:01)
[2018-07-29] MEDS: FAMOTIDINE 20MG TABLET PO SCH ×2 (09:01→20:40)
[2018-07-29] MEDS: COLCHICINE 0.6MG TABLET PO SCH ×2 (09:01→16:42)
[2018-07-29] MEDS: FOLIC ACID 1MG TABLET PO SCH (09:01)
[2018-07-29] MEDS: MULTIVITAMINS,THER W-MINERALS TABLET PO SCH (09:01)
[2018-07-29] MEDS: RIVAROXABAN 15 MG TABLET PO SCH ×2 (09:01→16:42)
[2018-07-29] MEDS: ALLOPURINOL 100 MG TABLET PO SCH (09:01)
[2018-07-29] MEDS: MAGNESIUM OXIDE 400MG TABLET PO SCH (09:01)
[2018-07-29] MEDS: METOPROLOL TARTRATE 25MG TABLET PO SCH ×2 (09:02→20:41)
[2018-07-29] MEDS: CALCITONIN,SALMON, 3.7 ML NASAL SPRAY ONENSTRL SCH (09:06)
[2018-07-29 20:00] VITALS: BP 126/81
[2018-07-29] MEDS: POLYETHYLENE GLYCOL 3350 (17GM) 1 DOSE PACK PO SCH (20:41)
[2018-07-30 07:01] LABS: BASOPHILS % 0.7 % (0.0-2.0); EOSINOPHILS % 1.6 % (0.0-5.0); HEMATOCRIT. 42.6 % (42.0-52.0); HEMOGLOBIN. 14.5 g/dL (14.0-18.0); LYMPHOCYTES % 26.4 % (20.0-50.0); MEAN CORPUSCULAR HEMOGLOBIN 30.9 pg (28.0-32.0); MEAN CORPUSCULAR VOLUME 90.6 fL (80.0-94.0); MEAN PLATELET VOLUME 7.1 fl (7.4-10.4); MONOCYTES % 12.2 % (2.0-8.0); NEUTROPHILS % 59.1 % (40.0-76.0); PLATELET 553 x1000/uL (130-400); RED CELL DISTRIBUTION WIDTH 16.5 % (11.6-14.6)
[2018-07-30 07:25] LABS: CHLORIDE 105 mEq/L (98-107)
[2018-07-30 07:39] LABS: PHOSPHORUS 4.6 mg/dL (2.5-4.9)
[2018-07-30 08:00] VITALS: BP 115/84
[2018-07-30] MEDS: LIDOCAINE 5% PATCH TOP SCH (09:00)
[2018-07-30] MEDS: DOCUSATE SODIUM 100MG CAPSULE PO SCH ×2 (09:00→16:16)
[2018-07-30] MEDS: FAMOTIDINE 20MG TABLET PO SCH ×2 (09:28→20:22)
[2018-07-30] MEDS: COLCHICINE 0.6MG TABLET PO SCH ×2 (09:29→16:19)
[2018-07-30] MEDS: MAGNESIUM OXIDE 400MG TABLET PO SCH ×2 (09:29→16:19)
[2018-07-30] MEDS: TRAMADOL 50MG TABLET PO PRN ×2 (09:29→23:05)
[2018-07-30] MEDS: FOLIC ACID 1MG TABLET PO SCH (09:30)
[2018-07-30] MEDS: MULTIVITAMINS,THER W-MINERALS TABLET PO SCH (09:30)
[2018-07-30] MEDS: METOPROLOL TARTRATE 25MG TABLET PO SCH ×2 (09:30→20:22)
[2018-07-30] MEDS: RIVAROXABAN 15 MG TABLET PO SCH ×2 (09:31→16:19)
[2018-07-30] MEDS: THIAMINE HCL 100MG TABLET PO SCH (09:31)
[2018-07-30] MEDS: ALLOPURINOL 100 MG TABLET PO SCH (09:31)
[2018-07-30] MEDS: FERROUS SULFATE 300MG/5ML UDC PO SCH ×3 (09:32→16:19)
[2018-07-30] MEDS: CALCITONIN,SALMON, 3.7 ML NASAL SPRAY ONENSTRL SCH (09:44)
[2018-07-30 20:00] VITALS: BP 125/89
[2018-07-30] MEDS: POLYETHYLENE GLYCOL 3350 (17GM) 1 DOSE PACK PO SCH (20:22)
[2018-07-31 08:00] VITALS: BP 131/78
[2018-07-31] MEDS: METOPROLOL TARTRATE 25MG TABLET PO SCH (08:39)
[2018-07-31] MEDS: FOLIC ACID 1MG TABLET PO SCH (08:39)
[2018-07-31] MEDS: MULTIVITAMINS,THER W-MINERALS TABLET PO SCH (08:39)
[2018-07-31] MEDS: FAMOTIDINE 20MG TABLET PO SCH (08:39)
[2018-07-31] MEDS: COLCHICINE 0.6MG TABLET PO SCH (08:39)
[2018-07-31] MEDS: MAGNESIUM OXIDE 400MG TABLET PO SCH (08:39)
[2018-07-31] MEDS: FERROUS SULFATE 300MG/5ML UDC PO SCH ×2 (08:39→13:10)
[2018-07-31] MEDS: ALLOPURINOL 100 MG TABLET PO SCH (08:40)
[2018-07-31] MEDS: THIAMINE HCL 100MG TABLET PO SCH (08:40)
[2018-07-31] MEDS: DOCUSATE SODIUM 100MG CAPSULE PO SCH (08:40)
[2018-07-31] MEDS: RIVAROXABAN 15 MG TABLET PO SCH (08:40)
[2018-07-31] MEDS: CALCITONIN,SALMON, 3.7 ML NASAL SPRAY ONENSTRL SCH (08:41)
[2018-07-31] MEDS: LIDOCAINE 5% PATCH TOP SCH (08:41)
[2018-07-31] MEDS: TRAMADOL 50MG TABLET PO PRN (09:15)
[2018-07-31 09:53] VITALS: BP 131/78
[2018-07-31] MEDS: ERGOCALCIFEROL 50000UNITS CAPSULE PO SCH (10:48)
[2018-08-09] MEDS ORDERED: RIVAROXABAN 20 MG TABLET PO SCH (15:00)
== END 2018-07-31 14:08 | disposition home health service (06) | DRG 92 ==
PROVIDERS: ADMIT Physical Medicine & Rehabilitation Spinal Cord Injury Medicine; ATTEND Internal Medicine
DX: G92 Toxic encephalopathy (principal); F10.239 Alcohol dependence with withdrawal, unspecified; E87.1 Hypo-osmolality and hyponatremia; E44.0 Moderate protein-calorie malnutrition; I82.411 Acute embolism and thrombosis of right femoral vein; R53.81 Other malaise; M10.9 Gout, unspecified; M25.561 Pain in right knee; E66.9 Obesity, unspecified; D69.6 Thrombocytopenia, unspecified; G40.909 Epilepsy, unspecified, not intractable, without status epilepticus; D63.8 Anemia in other chronic diseases classified elsewhere; I10 Essential (primary) hypertension; M19.90 Unspecified osteoarthritis, unspecified site; G62.1 Alcoholic polyneuropathy; E55.9 Vitamin D deficiency, unspecified; G31.2 Degeneration of nervous system due to alcohol; Z68.32 Body mass index [BMI] 32.0-32.9, adult
CPT/HCPCS: 36415; 70551; 72148; 73562; 80048; 82140; 82306; 82607; 82728; 82746; 83036; 83540; 83550; 83735; 84100; 84134; 84153; 84439; 84443; 84481; 84550; 92523; 93970; 97110; 97116; 97127; 97162; 97166; 97530; 97535; J3301; J3490; G0103